=== PATIENT | male | born 1955 | race Caucasian/White ===

== ENCOUNTER 2019-04-10 07:27 | Outpatient (CLI) | payer OTHER ==
[~2019-04-10] VITALS: Ht 172.7 cm; Wt 82.7 kg
--- NOTE | ~2019-04-10 | OP ---
PATIENT NAME: WESLY REED MEDICAL RECORD: [id number] :55 LOCATION:D.CAT ADMISSION DATE: SURGEON: GABBY VALENTE MD DATE OF OPERATION: 04/10/2019 PROCEDURES: 1. PTCA and stent of LAD. 2. IFR. 3. Left heart catheterization. 4. Selective coronary angiography. 5. Left ventriculogram. INDICATIONS: Angina and coronary artery disease. DESCRIPTION OF PROCEDURE: After informed consent was obtained and after a detailed explanation of the risks, benefits as well as alternative therapies, the patient elected to proceed with angiogram and angioplasty. The right radial area was prepped and draped in normal sterile fashion. Right radial artery was cannulated via modified Seldinger technique with placement of 6-Czech sheath. All catheters exchanged through this sheath. FINDINGS: Left ventriculogram was performed in standard 30-degree LOWE view, reveals good cardiac wall motion throughout all segments. Overall ejection fraction estimated 60%. SELECTIVE CORONARY ANGIOGRAPHY: 1. Left main is with no significant angiographic disease. 2. Left anterior descending has 70% stenosis in the proximal vessel and IFR is abnormal. 3. Left circumflex has mild irregularities, but no flow-limiting stenosis. 4. Right coronary has mild irregularities, but no flow-limiting stenosis. PTCA AND STENT OF THE LAD: The stent used was a 3.0 x 26-mm Jovanny. Result was 0% residual stenosis. OVERALL IMPRESSION: Successful PTCA and stent of the LAD going from 70+ percent initial stenosis with an abnormal IFR to 0% residual stenosis. TRANSINT:[id number] Voice Confirmation ID: [id number] DOCUMENT ID: [id number] GABBY VALENTE MD CC: [id number] DICTATION DATE: 04/10/19 0955 BILLET ASSEMBLER: 04/10/19 1137 [facility] [address] [place] [address]
--- NOTE | ~2019-04-10 | HEMODYNAMI ---
PATIENT:WESLY REED MEDICAL RECORD: [id number] : 55 LOCATION:[facility] ADMISSION DATE: 04/10/19 Generatedon:04/11/20199:13 Patient name: WESLY REED Patient #: [id number] : 1955 Date of study: 04/10/2019 Page: Of Hemodynamic Procedure Report Patient Data Patient Demographics Procedure consent was obtained First Name: WESLY Gender: Male Last Name: BRIANNA : 1955 Patient #: [id number] Age: 64 year(s) Race: SSN: [id number] Additional ID: [id number] Contact details Address: [address] [place] [address] [place]: [place] [facility] [place]: [address] Admission Admission Data Admission Date: 04/10/2019 Admission Time: 7:27 Arrival Date: 04/10/2019 Arrival Time: 9:30 Admit Source: Other Insurance Payor: Private health insurance [facility] #: [id number] Height (in.): 67.72 BSA: 1.95 (m2) Height (cm.): 172 BMI: 27.72 (kg/m2) Weight (lbs.): 180.78 Weight (kg.): 82 Lab Results Lab Result Date: 04/10/2019 Lab Result Time: 0:00 Biochemistry Name Units Result Min Max BUN mg/dl 16 --(---*)-- 7 18 Creatinine mg/dl 0.9 --(-*--)-- 0.6 1.3 CBC Name Units Result Min Max Hemoglobin g/dl 14.3 --(*---)-- 13.5 17.5 Procedure Procedure Types Cath Procedure Diagnostic Procedure [facility] w/Coronaries FFR/IVUS FFR Initial Sedation Charges Moderate Sedation up to 30 minutes PCI Procedure Coronary Stent Coronary Stent Initial Hemochron ACT Test Procedure Description Procedure Date Procedure Date: 04/10/2019 Procedure Start Time: 9:31 Procedure End Time: 9:52 Procedure Staff Name Function Zee Arrington RT Scrub Lydia Riojas RN Nurse Anton Domingo MD Performing Physician Zaira De La Cruz RT Monitor Procedure Data Cath Procedure Fluoroscopy Diagnostic fluoroscopy Total fluoroscopy Time: 5.8 time: 5.8 min min Diagnostic fluoroscopy Total fluoroscopy dose: 647 dose: 647 mGy mGy Contrast Material Contrast Material Type Amount (ml) Isovue 300 107 Entry Location Entry Primary Successful Side Size Upsize Upsize Entry Closure Hoffman ccessful Closure Location (Fr) 1 (Fr) 2 (Fr) Remarks Device Remarks Radial Right 6 Fr Mechanical artery Short Compression Estimated blood loss: 5 ml Diagnostic catheters Device Type Used For End Catheter Placement DIAGNOSTIC [place] 110cm 5 Procedure Fr catheter ([id number]) Procedure Complications No complications Procedure Medications Medication Administration Route Dosage Oxygen etCO2 Nasal cannula 2 l/min Lidocaine 2% added to field 20 Heparin Flush Bag added to field 2 bags (1000units/500ml NS) 0.9% NaCl I.V. 100 ml/hr Dextrose 50% I.V. 12.5 g Radial Cocktail I.A. 1 syringe (Verapamil 2mg/Nitro 400mcg/Heparin 1500units) Versed I.V. 1 mg Fentanyl I.V. 50 mcg Versed I.V. 1 mg Fentanyl I.V. 50 mcg Heparin Bolus I.V. 4000 units Integrilin (Bolus I.V. 7.3 ml 2mg/ml) Plavix P.O. 600 mg Hemodynamics Rest BSA: 1.95 (m2) HGB: 14.3 (g/dl) O2 Consumption: Estimated: 265.2 (ml/min) O2 Con sumption indexed: Estimated:136 (ml/min/m) Pre Cath Intra NCS Post Cath Vital Signs Time Heart Resp SPO2 etCO2 NIBP (mmHg) Rhythm Pain Sedation Rate (ipm) (%) (mmHg) Status Level (bpm) 9:10:30 78 20 99 25.4 136/73(103) NSR 0 (11) 10(A) , No pain 9:14:44 75 14 100 40.4 136/71(91) NSR 0 (11) 10(A) , No pain 9:18:58 74 14 98 42.7 136/69(103) NSR 0 (11) 10(A) , No pain 9:23:12 78 12 96 0 123/72(92) NSR 0 (11) 10(A) , No pain 9:27:24 78 11 95 0 119/65(96) NSR 0 (11) 10(A) , No pain 9:32:27 85 13 94 0 123/64(100) NSR 0 (11) 9(A) , No pain 9:36:35 87 13 93 0 124/70(97) NSR 0 (11) 9(A) , No pain 9:40:45 90 8 95 0 121/67(96) NSR 0 (11) 9(A) , No pain 9:44:53 79 15 100 41.2 119/69(93) NSR 0 (11) 9(A) , No pain 9:49:03 77 14 100 39.8 119/66(96) NSR 0 (11) 10(A) , No pain Medications Time Medication Route Dose Verified Delivered Reason Note s Effectiveness by by 9:15:39 Oxygen etCO2 2 l/min Anton Freeman used for Nasal Chayo Riojas RN procedure cannula 9:15:46 Lidocaine 2% added 20ml Anton Walton for local to vial Chayo Domingo MD anesthetic field 9:15:51 Heparin Flush added 2 bags Anton Walton used for Bag to Chayo Domingo MD procedure (1000units/500ml field NS) 9:16:01 Dextrose 50% I.V. 12.5 g Anton Freeman Per physician crit ical Chayo Riojas RN glucose reading from lab of 46 mg/dl. 9:16:01 0.9% NaCl I.V. 100 Anton Buffie Per physician ml/hr Chayo Riojas RN 9:29:50 Radial Cocktail I.A. 1 Anton Walton for (Verapamil syringe Chayo Domingo MD vasodilation 2mg/Nitro 400mcg/Hepari 9:29:57 Versed I.V. 1 mg Anton Buffie for sedation Chayo Riojas RN 9:30:04 Fentanyl I.V. 50 mcg Anton Buffie for sedation Chayo Riojas RN 9:37:29 Versed I.V. 1 mg Anton Hawkinsie for sedation Chayo Riojas RN 9:37:32 Fentanyl I.V. 50 mcg Anton Buffie for sedation Chayo Riojas RN 9:45:51 Heparin Bolus I.V. 4000 Anton Freeman for VERI FIED units Chayo Riojas RN anticoagulation WITH DR DOMINGO 9:45:59 Integrilin I.V. 7.3 ml Anton Freeman for WAST ED (Bolus 2mg/ml) Chayo Riojas RN antiplatelet 2.7 ML therapy OF VIAL 9:50:13 Plavix P.O. 600 mg Anton Freeman for Chayo Riojas RN antiplatelet therapy Procedure Log Time Note 8:13:13 Informed consent obtained and on chart 8:14:00 Admit Source: Other 8:14:03 Arrival Date: 04/10/2019 9:30:00 AM 8:14:28 Insurance Payor : Private health insurance 8:15:04 Diagnostic Cath Status : Elective 8:15:19 Procedure Status Elective Heart Cath (OP). 8:58:57 Zaira De La Cruz RT(R) sent for patient. Start room use. 8:58:58 Time tracking: Regular hours (M-F 7:00 - 5:00) 8:59:02 Plan of Care:Hemodynamics will remain stable., Cardiac rhythm will remain stable., Comfort level will be maintained., Respiratory function will remain adequate., Patient/ family verbilizes understanding of procedure., Procedure tolerated without complication., Recovers from procedure without complications.. 8:59:10 Patient Height : 67.72 inches 8:59:14 Patient Weight : 180.78 lbs 9:02:15 Patient received from Pre/Post Procedure Room to CCL 2 Alert and oriented. Tansferred to table in Supine position. 9:02:42 Correct patient and procedure confirmed by team. 9:02:42 Warm blankets applied, and flynn hugger turned on for patient comfort. 9:02:43 ECG and BP/O2 sat monitors applied to patient. 9:09:26 Vital chart was started 9:09:30 Rhythm: sinus rhythm 9:09:32 Full Disclosure recording started 9:09:36 H&P Date Dictated: 04/10/2019 H&P Addendum completed by physician on day of procedure. (MUST COMPLETE FOR ALL OUTPATIENTS), New H&P dictated by physician.. 9:10:11 Pre-op teaching completed and patient verbalized understanding. 9:10:11 Pre-procedure instructions explained to patient. 9:10:16 Family in waiting room. 9:10:17 Patient NPO since Midnight. 9:10:19 Is the patient allergic to Iodine/contrast media? No. 9:10:20 Was the patient premedicated? Yes 9:10:21 Is patient on blood thinner?No 9:10:22 Patient diabetic? Yes. 9:10:23 If diabetic: On Metformin? Yes 9:10:26 If on Metformin: Last Dose? 04/08/2019 9:10:29 Previous problem with sedation/anesthesia? No ? 9:10:34 Snore? Yes 9:10:35 Sleep apnea? No 9:10:36 Opens mouth fully? Yes 9:10:36 Deviated septum? No 9:10:37 Sticks out tongue? Yes 9:10:38 Airway obstruction? No ? 9:10:41 Dentures? No ? 9:10:44 Pre procedure: right dorsailis pedis pulse 2+ Normal; easily identifiable; not easily obliterated 9:10:47 Pre procedure: left dorsailis pedis pulse 2+ Normal; easily identifiable; not easily obliterated 9:10:50 Patient pain scale 0/10 ?. 9:10:55 IV patent on arrival in left forearm with 0.9% NaCl at [facility]. 9:10:57 Lab results completed and on chart. 9:15:01 Lab Result : Hemoglobin 14.3 g/dl 9:15:01 Lab Result : Creatinine 0.9 mg/dl 9:15:01 Lab Result : BUN 16 mg/dl 9:15:39 Oxygen 2 l/min etCO2 Nasal cannula was administered by Lydia Riojas RN; used for procedure; Verbal order read back and verified. 9:15:46 Lidocaine 2% 20ml vial added to field was administered by Anton Domingo MD; for local anesthetic; Verbal order read back and verified. 9:15:51 Heparin Flush Bag (1000units/500ml NS) 2 bags added to field was administered by Anton Domingo MD; used for procedure; Verbal order read back and verified. 9:16:01 Dextrose 50% 12.5 g I.V. was administered by Lydia Riojas RN; Per physician; critical glucose reading from lab of 46 mg/dl. Verbal order read back and verified. 9:16:01 0.9% NaCl 100 ml/hr I.V. was administered by Buffie Riojas RN; Per physician; Verbal order read back and verified. 9:24:34 Stress Test: yes; abnormal inferior, apical 9:28:24 Risk of Mortality: ? 9:28:28 Risk of Mortality: .1 9:28:32 Risk of blood transfusion: .5 9:28:40 Right Radial & Right Groin area was prepped with chlora-prep and draped in sterile fashion 9:28:41 Sharps counted by scrub and verified by R.N. 9::41 Alarms reviewed by R. N. 9:28:42 Physician arrived 9:28:44 Final Timeout: patient, procedure, and site verified with staff and physician. All members of the team are in agreement. 9::44 --------ALL STOP TIME OUT------ 9:28:47 Right Radial & Right Groin site verified by team. 9:28:50 Fire Safety Assessment: A--An alcohol-based skin anteseptic being used preoperatively., C--Open oxygen or nitrous oxide is being used., D--An ESU, laser, or fiber-optic light is being used. 9:28:57 Physical assessment completed. ASA score P 2 - A patient with mild systemic disease as per Anton Domingo MD. 9:29:00 1) 90+ Normal kidney functon but urine findings or structural abnormalities or genetic trait point to kidney disease. 9:29:03 Maximum allowable contrast dose (3.7 X eGFR X 0.75)249 ml. 9:29:08 Sedation plan: IV Moderate Sedation Medication:Versed, Fentanyl 9:29:15 Use device set Radial Dx or PCI 9:29:18 Medline Cath Pack ([id number]) opened to sterile field. 9:29:18 ACIST Syringe (19696) opened to sterile field. 9:29:19 ACIST Manifold (88892) opened to sterile field. 9:29:19 ACIST Hand Control (68987) opened to sterile field. 9:29:19 Bag Decanter () opened to sterile field. 9:29:20 Tegaderm 4 x 4 (1626W) opened to sterile field. 9:29:21 MBrace Wrist Support ([id number]) opened to sterile field. 9:29:23 EMERALD Guide Wire (587-405) opened to sterile field. 9:29:24 SHEATH 6FR RAIN (2312137) opened to sterile field. 9:29:50 Radial Cocktail (Verapamil 2mg/Nitro 400mcg/Heparin 1500units) 1 syringe I.A. was administered by Anton Domingo MD; for vasodilation; Verbal order read back and verified. 9:29:57 Versed 1 mg I.V. was administered by Lydia Riojas RN; for sedation; Verbal order read back and verified. 9:30:04 Fentanyl 50 mcg I.V. was administered by Lydia Riojas RN; for sedation; Verbal order read back and verified. 9:31:07 Procedure started. 9:31:22 Local anesthetic to right radial artery with Lidocaine 2% by Anton Domingo MD.INITIAL ACCESS ONLY 9:32:41 A 6 Fr Short sheath was inserted into the Right Radial artery 9:32:53 A DIAGNOSTIC [place] 110cm 5 Fr catheter (459622) was advanced over the wire and used for Procedure. 9:33:32 LV angiography performed. 9:33:46 EF : 55 % 9:34:22 RCA angiography performed. 9:34:43 Catheter removed. 9:34:49 Zero performed for pressure channel P1 9:35:37 GUIDE 6FR XBLAD 3.5 catheter ([id number]) opened to sterile field. 9:36:05 6 Fr XBLAD3.5 guide catheter was inserted over the wire 9:37:29 Versed 1 mg I.V. was administered by Lydia Riojas RN; for sedation; Verbal order read back and verified. 9:37:32 Fentanyl 50 mcg I.V. was administered by Lydia Riojas RN; for sedation; Verbal order read back and verified. 9:38:03 IFR wire advanced. 9:38:19 INFLATOR Merit BasixCompak (NS7395) opened to sterile field. 9:38:20 [place] Verrata Plus pressure wire (56893R) opened to sterile field. 9:42:50 blad exchanged for ebu 9:42:59 6 Fr EBU3.0 guide catheter was inserted over the wire 9:43:03 IFR wire advanced. 9:43:19 GUIDE 6FR EBU 3.0 catheter ([id number]) opened to sterile field. 9:45:51 Heparin Bolus 4000 units I.V. was administered by Lydia Riojas RN; for anticoagulation; VERIFIED WITH DR DOMINGO Verbal order read back and verified. 9:45:59 Integrilin (Bolus 2mg/ml) 7.3 ml I.V. was administered by Lydia Riojas RN; for antiplatelet therapy; WASTED 2.7 ML OF VIAL Verbal order read back and verified. 9:46:33 mLAD lesion measured at .73 with IFR 9:47:08 Place stent Inflation Number: 1 A KAMILLA RX 3.0 x 26 stent ([id number]) was prepped and advanced across the Mid LAD 70. The stent was deployed at 13 NANCY for 0:00 (min:sec) . 9:49:03 ZEPHYR REGULAR TR BAND (039949) opened to sterile field. 9:49:36 Sheath removed intact; hemostasis achieved with Mechanical Compression to the Right Radial artery. 9:49:39 Procedure ended.(Physican Out) 9:49:50 Fluoroscopy time 05.80 minutes. 9:49:54 Fluoroscopy dose: 647 mGy 9:49:54 Flurop Dose total: 647 9:50:02 Dose Area Product 46343 mGy/cm. 9:50:07 Contrast amount:Isovue 300 107ml. 9:50:10 Maximum allowable dose exceeded? No. 9:50:11 Sharps counted by scrub and verified by R.N. 9:50:13 Plavix 600 mg P.O. was administered by Lydia Riojas RN; for antiplatelet therapy; Verbal order read back and verified. 9:50:14 [place] band inflated with 10cc of air. 9:50:23 Insertion/operative site no bleeding no hematoma. 9:50:27 Post Procedure Pulses reassessed and unchanged 9:50:32 Post-procedure physical assessment completed. ASA score P 2 - A patient with mild systemic disease as per Anton Domingo MD. 9:50:35 Post procedure rhythm: unchanged. 9:50:39 Estimated blood loss: 5 ml 9:50:40 Post procedure instruction explained to patient.Patient verbalizes understanding. 9:51:11 Procedure type changed to Cath procedure, Diagnostic procedure, LHC, LHC w/Coronaries, FFR/IVUS, FFR Initial, Sedation Charges, Moderate Sedation up to 30 minutes, PCI procedure, Coronary Stent, Coronary Stent Initial, Hemochron ACT Test 9:51:14 Procedure and supply charges have been captured, reviewed, submitted and are correct. 9:51:43 Procedure Complication : No complications 9:51:47 Vital chart was stopped 9:51:54 [facility] Findings: MVD- PCI performed (see procedure note) 9:51:58 Operative report dictated upon procedure completion. 9:52:00 See physician's report for complete and final results. 9:52:02 Report given to Pre/Post Procedure Room. 9:52:05 Patient transfered to Pre/Post Procedure Room with Stretcher. 9:52:08 Full Disclosure recording stopped 9:52:08 Procedure ended. 9:52:14 End room use (Document Last) 9:52:18 ACC-PCI Only Patient was given prescriptions, or instructed by Anton Domingo MD to start/continue the following medications upon discharge: Plavix 9:53:47 ACT drawn and resulted at 353 seconds. (normal therapeutic range 180-240 seconds). 9:12:32 LATE ENTRY ON 3.5.2020 @0911 [facility] ANGIOGRAPHY WAS PERFORMED( 0936) WITH THE XBLAD 3.5 LUIGI- ZAIRA DE LA CRUZ Intervention Summary Intervention Notes Time ActionType Lesion and Equipment Used Action# Pressure Duration Attributes 9:47:[address] Place stent Mid LAD KAMILLA RX 3.0 x 1 13 00:00 26 stent ([id number]) Device Usage Item Name Manufacture Quantity Catalog Hospital Part Current Minimal Lot# / Number Charge Number Stock Stock Serial# Code ACIST Syringe Acist 1 16105 796608 454409 884725 20 (46028) Medical Systems Inc Medline Cath Medline 1 [id number] 333168 21005 777293 5 Pack ([id number]) Bag Decanter Microtek 1 2001S 599198 26406 707664 5 (2001S) Medical Inc. ACIST Hand Acist 1 45634 421660 812065 731906 5 Control Medical (62554) Systems Inc ACIST Manifold Acist 1 70745 737728 488187 917315 5 (97446) Medical Systems Inc Tegaderm 4 x 4 3M 1 1626W 272834 954475 225332 5 (1626W) MBrace Wrist Advanced 1 140-0250-00 990211 01895 755165 5 Support Vascular ([id number]) Dynamics EMERALD Guide Cardinal 1 502-455 181352 948032 839777 5 Wire (506-611) Health SHEATH 6FR Cardinal 1 0866338 069555 8520763 371988 5 RAIN (6734659) Health DIAGNOSTIC Terumo 1 40-5013 435776 109766 512034 5 [place] 110cm 5 Fr catheter (930225) GUIDE 6FR Cardinal 1 [id number] 100920 701003 471095 10 XBLAD 3.5 Health catheter (52734832) INFLATOR Merit Merit 1 PD1683 958477 254830 385897 15 BasixCompaTargetX Medical (UR4727) [place] 1 09880E 011137 [id number] 770733 5 Verrata Plus pressure wire (49890M) GUIDE 6FR EBU Medtronic 1 [id number] 209141 77153 228920 0 3.0 catheter (PV1OWC57) KAMILLA RX 3.0 x Medtronic 1 [id number] 258508 4378527 160462 5 [id number] 26 stent ([id number]) ZEPHYR REGULAR Cardinal 1 246904 642848 1124177 797611 5 [facility] [employer] (547069) Signature Audit Shidler Stage Time Signature Unsigned Intra-Procedure 04/10/2019 Zaira De La Cruz 9:53:00 AM RT(R) Intra-Procedure 04/10/2019 Lydia Riojas RN 9:53:34 AM Intra-Procedure 04/10/2019 Anton Domingo MD 9:54:06 AM 04/11/2019 9:09:08 AM Intra-Procedure 04/11/2019 Zaira De La Cruz 9:13:14 AM RT(R) [facility] [address] [place] [address]
[2019-04-10] MEDS ORDERED: GLUCOPHAGE1000 MG PO (07:42)
[2019-04-10] MEDS ORDERED: HUMULIN N100 U/ML (07:43)
[2019-04-10] MEDS ORDERED: LISINOPRIL20 MG PO (07:44)
[2019-04-10] MEDS ORDERED: LIPITOR20 MG PO (07:44)
[2019-04-10 07:53] VITALS: BP 141/75; Ht 172.7 cm; Wt 82.7 kg
[2019-04-10 08:34] LABS: BASOPHILS 0.2 % (0-2); EOSINOPHILS 3.9 % (0-7); HEMATOCRIT 43.7 % (42.0-54.0); HEMOGLOBIN 14.3 g/dL (13.5-17.5); IMMATURE GRANULOCYTES 0.1 % (0-5); LYMPHOCYTES 27.8 % (15-50); MCH 29.9 pg (26.0-34.0); MCHC 32.7 g/dL (31.0-37.0); MCV 91.2 fL (80.0-100.0); MEAN PLATELET VOLUME 9.4 fL (7.4-10.4); MONOCYTES 5.7 % (2-11); NEUTROPHILS 62.3 % (40-80); PLATELET COUNT 253 10x3/uL (130-400); RBC 4.79 10x6/uL (4.20-6.10); WBC 10.5 10x3/uL (4.8-10.8)
[2019-04-10 08:35] LABS: CALCIUM 8.6 mg/dL (8.5-10.1); CARBON DIOXIDE 31.6 mmol/L (21.0-32.0); CHLORIDE - SERUM 108 mmol/L (98-107); CREATININE - SERUM 0.9 mg/dL (0.6-1.3); POTASSIUM - SERUM 3.9 mmol/L (3.5-5.1); SODIUM 142 mmol/L (136-145); UREA NITROGEN 16 mg/dL (7-18); eGFR NON AFRICAN AMERICAN 90 mL/min (90-120)
[2019-04-10 08:48] LABS: CALC OSMOLALITY 280 mosm/kg (275-300)
[2019-04-10 09:02] LABS: GLUCOSE 46 mg/dL (74-106)
[2019-04-10] MEDS ORDERED: PLAVIX75 MG PO (10:16)
[2019-04-10] MEDS ORDERED: BAYER CHEWABLE81 MG PO (10:29)
== END 2019-04-10 14:10 | disposition home or self-care (01) ==
LOC: D.CATH 07:27
PROVIDERS: ATTEND Internal Medicine Interventional Cardiology
DX: I25.119 Atherosclerotic heart disease of native coronary artery with unspecified angina pectoris (principal); R06.02 Shortness of breath; E78.5 Hyperlipidemia, unspecified; I10 Essential (primary) hypertension